=== PATIENT | female | born 1955 | race Caucasian/White ===

== ENCOUNTER 2024-06-22 17:46 | Emergency (ER) | payer OTHER, SELFPAY ==
[2024-06-22 17:53] VITALS: BP 184/80; PULSE 76; RESP 16; TEMP 36.7; O2SAT 98; BMI 39.6
--- NOTE | 2024-06-22 18:12 | DI.CT.S_ITS ---
PROCEDURE: CT HEAD/BRAIN WO CON INDICATIONS: fall, on eliquis TECHNIQUE: Noncontrast 4.5 mm thick angled axial sections acquired from the foramen magnum to the vertex, with coronal and sagittal reformats. For radiation dose reduction, the following was used: automated exposure control, adjustment of mA and/or kV according to patient size. COMPARISON: None. FINDINGS: Image quality: Diagnostic. CSF spaces: Basal cisterns are patent. No extra-axial fluid collections. The ventricles are symmetric in size and shape. Brain: No intracranial bleeds or masses. There is cerebral volume loss for age, with resultant ventricular and sulcal prominence. There are periventricular and deep white matter chronic small vessel ischemic changes. There is intracranial internal carotid artery atherosclerosis. Skull and face: Calvarium and visualized facial bones appear intact, without suspicious lesions. Sinuses: Visualized sinuses and mastoids are clear. IMPRESSION: No acute intracranial pathology. Dictated by: Bridger Schwab M.D. on 06/22/2024 at 19:01 Approved by: Bridger Schwab M.D. on 06/22/2024 at 19:02
--- NOTE | 2024-06-22 18:40 | ED_ITS ---
HPI - Wound/Laceration General Chief Complaint: Wound/Laceration Stated Complaint: Fall, face injury Time Seen by Provider: 06/22/24 18:00 Source: patient Mode of arrival: Ambulatory History of Present Illness HPI narrative: 69-year-old woman with a history of hypertension, currently anticoagulated on Eliquis, was [place] suffered mechanical fall fell forward and has minor contusion to her nose, to the upper philtrum, small abrasion medial aspect of the right brow from her glasses. There was no loss consciousness. She is not complaining of any additional pain issues or concerns. She was able to walk without difficulty into the exam room. Related Data Allergies Allergy/AdvReac Type Severity Reaction Status Date / Time No Known Drug Allergies Allergy Verified 06/22/24 18:00 Review of Systems Review of Systems Narrative: Pertinent positive and negative findings as per HPI Patient History Social History Smoking Status: Current every day smoker Smoking Status: Current every day smoker Substance Use Type: does not use Exam Initial Vital Signs Initial Vital Signs: Vital Signs Temperature 98.0 F 06/22/24 17:53 Pulse Rate 76 06/22/24 17:53 Respiratory Rate 16 06/22/24 17:53 Blood Pressure 184/80 H 06/22/24 17:53 Pulse Oximetry 98 06/22/24 17:53 Oxygen Delivery Method Room Air 06/22/24 17:53 General: in no acute distress, minor abrasions to her face, bleeding is controlled. Able to give a complete and coherent history. Well-nourished well- developed HEENT: Moist mucous membranes, normal sclera with reactive pupils, Neck: No JVD, supple Respiratory: Lungs are clear to auscultation, no wheezing no rales no rhonchi. Full and symmetrical air movement Cardiac: Regular rate and rhythm no murmurs no bruits Abdomen: Soft, nontender, good bowel tones, no flank pain Skin: Warm and dry, no rashes Neurologic: Grossly neurologically intact with no obvious asymmetries or abnormalities Extremities: No trauma, well perfused Psych: Cooperative, appropriate insight and affect Course Orders Ordered: ED Orders 06/22/24 18:12 CT head/brain wo con Stat Discontinued Medications Acetaminophen (Acetaminophen 325 Mg Tablet) 650 mg PO NOW ONE Stop: 06/22/24 18:13 Last Admin: 06/22/24 18:58 Dose: 650 mg Vital Signs Vital signs: Vital Signs - 8 hr 06/22/24 17:53 Temperature 98.0 F Pulse Rate 76 Respiratory Rate 16 Blood Pressure 184/80 H Pulse Oximetry 98 Oxygen Delivery Method Room Air MDM - Wound/Laceration MDM Narrative Medical decision making narrative: CC: Mechanical fall, landing on her nose Complicating co-morbidities: 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 Superficial 1 cm laceration just under her nose that will be repaired with glue. No tenderness along her cervical spine to palpation. No other injuries appreciated. Remainder of musculoskeletal exam is benign Imaging studies independently reviewed: CT scan of the head does not show any intracranial hemorrhage Treatments: Oral Tylenol Procedure: Lacerations around the face are cleaned for full evaluation. Small laceration just under the nose, 1 cm in length. Through the epidermis only. Bleeding is controlled. Explored through the entire depth of the wound. Reapproximated with skin glue. 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 She has a small laceration under her nose that is glued without difficulty. CT scan does not show any significant abnormalities. She has no neck and cervical spine is not imaged today. There was no musculoskeletal/extremity abnormality. No indication for additional imaging, blood work or hospitalization. Questions are answered she is safe for discharge Discharge Plan Departure Patient Disposition: Home Clinical Impression: Laceration Fall Qualifiers: Encounter type: initial encounter Qualified Code(s): W19.XXXA - Unspecified fall, initial encounter Instructions: DI for Minor Laceration Activity Restrictions/Additional Instructions: Thank you for coming in today I used some skin glue to fix a small cut in your nose. Your CT scan is very reassuring. I see no signs of acute bleeding or reasons for additional imaging at this time. Should you notice persistent headaches or new findings please feel free to return and we can further re-evaluate Using Tylenol for the next couple of days for the aches and pains that you are likely to find we will be very appropriate. You may find heat to the areas of tenderness we will also help. Referrals: Miscellaneous,Doctor [Primary Care Provider] - Stand Alone Forms: Patient Portal/API
[2024-06-22] MEDS: ACETAMINOPHEN 325 MG TABLET 650 MG PO (18:58)
--- NOTE | 2024-06-22 19:03 | PC.NURSE ---
Cleaned facial wounds with warm water and 0.9% NS. Pt tolerated well. Noted raised bump on inner right eye brow line under cut from glasses. Cut is approx 1 cm. Cut under nare is slightly irregular. Provider notified ready for glue.
[2024-06-22 19:23] VITALS: BP 175/76; PULSE 63; RESP 18; TEMP 36.4; O2SAT 97
== END 2024-06-22 19:24 | disposition home or self-care (01) ==
PROVIDERS: Emergency Provider Emergency Medicine
DX: S01.81XA Laceration without foreign body of other part of head, initial encounter (principal); I10 Essential (primary) hypertension; W18.30XA Fall on same level, unspecified, initial encounter; Z79.01 Long term (current) use of anticoagulants
CPT/HCPCS: 70450; 99283; 99284